=== PATIENT | female | born 1940 | race Caucasian/White ===

== ENCOUNTER 2017-09-06 14:12 | Inpatient (IN) | payer OTHER ==
[~2017-09-06] VITALS: Ht 157.5 cm; Wt 45.6 kg
[~2017-09-06 14:12] MED LIST: ALPRAZOLAM0.25 M2 PO; CARDIZEM CD120 MG PO; CARTIA XT120 MG PO; CARTIA XT240 MG PO; CELEBREX200 MG PO; CLOPIDOGREL75 MG PO; CYMBALTA30 MG PO; CYMBALTA60 MG PO; DAILY VALUE1 EACH PO; DIGOXIN125 MCG PO; DIGOXIN250 MCG PO; LEVAQUIN750 MG PO; LISINOPRIL10 MG PO; LISINOPRIL5 MG PO; LO-DOSE ASPIRIN81 M1 PO; METOPROLOL SUCC25 MG PO; METOPROLOL SUCC50 MG PO; NEXIUM40 MG PO; OXYCONTIN40 MG PO; OXYCONTIN80 MG PO; PANTOPRAZOLE SO40 MG PO; PAXIL20 MG PO; PLAVIX75 MG PO; PROTONIX40 MG PO; REMERON15 M2 PO; SPIRIVA1 INHALATI IH; ST. JOSEPH ASPI81 MG PO; TUDORZA PRESS400 MCG IH; VYTORIN 10/21 TABLET PO; XANAX0.5 MG PO; XARELTO15 MG PO; ZESTRIL20 MG PO; ZIAC 2.5/6.251 TAB PO
[2017-09-06 15:09] LABS: HEMOGLOBIN 12.8 G/DL (11.9-15.5); MCH 23.4 PG (29.0-34.0); PLATELET COUNT 414 K/uL (156-360); RBC DIS.WIDTH-SD 50.9 % (39-53); RED BLOOD COUNT 5.48 M/uL (3.80-5.20)
[2017-09-06 15:47] LABS: ALBUMIN 3.9 G/DL (3.2-4.8); CHLORIDE 97 MEQ/L (99-109); POTASSIUM 3.4 MEQ/L (3.7-5.4); SODIUM 132 MEQ/L (136-147); TOTAL BILIRUBIN 0.6 MG/DL (0.0-1.0)
[2017-09-06 15:53] LABS: ALKALINE PHOSPHATASE 108 IU/L (3-129); ALT (GPT) 13 IU/L (3-49); AST (GOT) 19 IU/L (2-34); CREATININE 1.1 MG/DL (0.6-1.3); GFR ESTIMATE (CALCULATED) 51 mL/min/; GLUCOSE 179 mg/dL (70-99); TOTAL PROTEIN 7.1 G/DL (6.4-8.3); UREA NITROGEN (BUN) 22 mg/dL (9-23)
[2017-09-06 17:38] LABS: LIPASE 63 U/L (1.0-51.0)
[2017-09-06 18:25] LABS: APPEARANCE CLEAR ((CLEAR)); BILIRUBIN NEGATIVE; BLOOD NEGATIVE; COLOR YELLOW ((YELLOW)); GLUCOSE (STRIP) NEGATIVE; KETONES NEGATIVE; LEUKOCYTES NEGATIVE; NITRITE NEGATIVE; PROTEIN (STRIP) 100; SPECIFIC GRAVITY 1.024 (1.000-1.030); UROBILINOGEN 0.2 MG/DL (0.2-1.0)
[2017-09-06 18:29] LABS: BACTERIA NONE SEEN /HPF; EPITHELIAL CELLS RARE /HPF; MUCUS TRACE /LPF; RED BLOOD CELLS 0-5 /HPF (0-5); UCUL ADDED? NO; WHITE BLOOD CELLS 0-5 /HPF (0-5)
[2017-09-06] MEDS ORDERED: ZOCOR20 MG PO (21:44)
[2017-09-06] MEDS ORDERED: ZETIA10 MG PO (21:44)
[2017-09-06] MEDS ORDERED: ZESTRIL10 MG PO (21:45)
[2017-09-06] MEDS ORDERED: OXYCONTIN80 MG PO (21:46)
[2017-09-06] MEDS ORDERED: PROZAC20 MG PO (21:46)
[2017-09-06] MEDS ORDERED: XANAX0.25 MG PO (21:46)
[2017-09-06] MEDS ORDERED: PROTONIX40 MG PO (21:47)
[2017-09-06] MEDS ORDERED: MOVANTIK25 MG PO (21:47)
[2017-09-06] MEDS ORDERED: WELLBUTRIN75 MG PO (21:47)
[2017-09-06 22:45] VITALS: BP 153/70
[2017-09-07 05:30] VITALS: BP 101/52
[2017-09-07 05:44] LABS: HEMATOCRIT 31.4 % (36.0-46.0); HEMOGLOBIN 9.7 G/DL (11.9-15.5); MCH 22.9 PG (29.0-34.0); MCHC 30.9 G/DL (30.0-36.0); MCV 74.1 FL (83-99); PLATELET COUNT 301 K/uL (156-360); RBC DIS.WIDTH-SD 53.1 % (39-53); RED BLOOD COUNT 4.24 M/uL (3.80-5.20); WHITE BLOOD COUNT 8.6 K/uL (4.1-10.2)
[2017-09-07 06:04] LABS: ALBUMIN 3.2 G/DL (3.2-4.8); ALKALINE PHOSPHATASE 78 IU/L (3-129); ALT (GPT) 12 IU/L (3-49); AST (GOT) 23 IU/L (2-34); CHLORIDE 105 MEQ/L (99-109); CREATININE 0.9 MG/DL (0.6-1.3); GFR ESTIMATE (CALCULATED) > 59 mL/min/; GLUCOSE 85 mg/dL (70-99); SODIUM 137 MEQ/L (136-147); TOTAL BILIRUBIN 0.5 MG/DL (0.0-1.0); TOTAL PROTEIN 5.6 G/DL (6.4-8.3); UREA NITROGEN (BUN) 16 mg/dL (9-23)
[2017-09-07 08:32] VITALS: BP 94/52
[2017-09-07 11:46] VITALS: BP 115/63
[2017-09-07 13:52] VITALS: BP 125/63
[2017-09-07 14:31] LABS: BASOPHIL (%) 0.5 % (0-1); EOSINOPHIL (%) 0.4 % (0-5); HEMATOCRIT 31.2 % (36.0-46.0); HEMOGLOBIN 9.6 G/DL (11.9-15.5); IMMATURE GRANULOCYTE (%) 0.4 % (0.0-0.7); LYMPHOCYTE (%) 19.1 % (15-42); LYMPHOCYTE COUNT 1.4 K/uL (1.0-2.8); MCH 23.4 PG (29.0-34.0); MCHC 30.8 G/DL (30.0-36.0); MCV 75.9 FL (83-99); MONOCYTE (%) 13.8 % (3-12); NEUTROPHIL (%) 65.8 % (45-76); PLATELET COUNT 250 K/uL (156-360); RBC DIS.WIDTH-SD 54.8 % (39-53); RED BLOOD COUNT 4.11 M/uL (3.80-5.20); WHITE BLOOD COUNT 7.6 K/uL (4.1-10.2)
[2017-09-07 19:28] VITALS: BP 122/70
[2017-09-07 23:29] VITALS: BP 131/63
[2017-09-08] VITALS (7 sets, daily range): BP systolic 125–165; BP diastolic 60–85
[2017-09-08 06:01] LABS: BASOPHIL (%) 0.9 % (0-1); BASOPHIL COUNT 0.1 K/uL (0-0.1); EOSINOPHIL COUNT 0.1 K/uL (0-0.3); HEMATOCRIT 31.4 % (36.0-46.0); HEMOGLOBIN 9.3 G/DL (11.9-15.5); IMMATURE GRANULOCYTE (%) 0.5 % (0.0-0.7); LYMPHOCYTE (%) 24.9 % (15-42); MCH 22.7 PG (29.0-34.0); MCHC 29.6 G/DL (30.0-36.0); MCV 76.6 FL (83-99); MONOCYTE (%) 10.3 % (3-12); MONOCYTE COUNT 0.8 K/uL (0-0.8); NEUTROPHIL (%) 62.4 % (45-76); PLATELET COUNT 249 K/uL (156-360); RBC DIS.WIDTH-CV 19.9 % (11.8-14.6); RBC DIS.WIDTH-SD 55.6 % (39-53); WHITE BLOOD COUNT 8.1 K/uL (4.1-10.2)
[2017-09-08 06:20] LABS: TROP-I INTERPRETATION NEGATIVE; TROPONIN-I 0.09 ng/mL (0.0-0.30)
[2017-09-08 06:25] LABS: CHLORIDE 110 MEQ/L (99-109); GFR ESTIMATE (CALCULATED) 57 mL/min/; GLUCOSE 58 mg/dL (70-99); POTASSIUM 4.7 MEQ/L (3.7-5.4); SODIUM 139 MEQ/L (136-147); UREA NITROGEN (BUN) 16 mg/dL (9-23)
[2017-09-09 04:28] VITALS: BP 142/68
[2017-09-09 07:03] LABS: BASOPHIL (%) 0.6 % (0-1); EOSINOPHIL (%) 1.7 % (0-5); EOSINOPHIL COUNT 0.1 K/uL (0-0.3); HEMATOCRIT 34.2 % (36.0-46.0); HEMOGLOBIN 10.4 G/DL (11.9-15.5); IMMATURE GRANULOCYTE (%) 0.4 % (0.0-0.7); LYMPHOCYTE (%) 24.7 % (15-42); LYMPHOCYTE COUNT 1.7 K/uL (1.0-2.8); MCH 23.2 PG (29.0-34.0); MCHC 30.4 G/DL (30.0-36.0); MCV 76.3 FL (83-99); MONOCYTE (%) 8.9 % (3-12); MONOCYTE COUNT 0.6 K/uL (0-0.8); NEUTROPHIL (%) 63.7 % (45-76); NEUTROPHIL COUNT 4.4 K/uL (1.8-6.4); PLATELET COUNT 247 K/uL (156-360); RBC DIS.WIDTH-CV 19.8 % (11.8-14.6); RBC DIS.WIDTH-SD 53.6 % (39-53); RED BLOOD COUNT 4.48 M/uL (3.80-5.20)
[2017-09-09 07:38] LABS: CHLORIDE 105 MEQ/L (99-109); GFR ESTIMATE (CALCULATED) 57 mL/min/; POTASSIUM 3.8 MEQ/L (3.7-5.4); SODIUM 137 MEQ/L (136-147); UREA NITROGEN (BUN) 11 mg/dL (9-23)
[2017-09-09 07:39] LABS: GLUCOSE 112 mg/dL (70-99)
[2017-09-09 08:00] VITALS: BP 132/67
[2017-09-09 12:00] VITALS: BP 139/72
[2017-09-09 16:00] VITALS: BP 139/84
[2017-09-09 19:37] VITALS: BP 120/65
[2017-09-10 00:04] VITALS: BP 134/59
[2017-09-10 04:14] VITALS: BP 132/55
[2017-09-10 07:08] LABS: BASOPHIL (%) 0.6 % (0-1); EOSINOPHIL (%) 1.6 % (0-5); EOSINOPHIL COUNT 0.1 K/uL (0-0.3); HEMATOCRIT 30.1 % (36.0-46.0); HEMOGLOBIN 9.2 G/DL (11.9-15.5); IMMATURE GRANULOCYTE (%) 0.3 % (0.0-0.7); LYMPHOCYTE (%) 27.4 % (15-42); LYMPHOCYTE COUNT 1.9 K/uL (1.0-2.8); MCH 23.1 PG (29.0-34.0); MCHC 30.6 G/DL (30.0-36.0); MCV 75.4 FL (83-99); MONOCYTE (%) 8.9 % (3-12); MONOCYTE COUNT 0.6 K/uL (0-0.8); NEUTROPHIL (%) 61.2 % (45-76); NEUTROPHIL COUNT 4.2 K/uL (1.8-6.4); PLATELET COUNT 231 K/uL (156-360); RBC DIS.WIDTH-CV 19.3 % (11.8-14.6); RBC DIS.WIDTH-SD 52.9 % (39-53); RED BLOOD COUNT 3.99 M/uL (3.80-5.20); WHITE BLOOD COUNT 6.9 K/uL (4.1-10.2)
[2017-09-10 07:25] VITALS: BP 144/83
[2017-09-10 07:32] LABS: CHLORIDE 109 MEQ/L (99-109); CREATININE 0.9 MG/DL (0.6-1.3); GFR ESTIMATE (CALCULATED) > 59 mL/min/; GLUCOSE 109 mg/dL (70-99); POTASSIUM 3.5 MEQ/L (3.7-5.4); SODIUM 137 MEQ/L (136-147); UREA NITROGEN (BUN) 9 mg/dL (9-23)
[2017-09-10] MEDS ORDERED: CARDIZEM CD,CA180 MG PO (08:16)
[2017-09-10] MEDS ORDERED: CIPROFLOXACIN500 M1 PO (08:18)
[2017-09-10] MEDS ORDERED: FLAGYL500 MG PO (08:19)
== END 2017-09-10 11:20 | disposition home or self-care (01) | DRG 392 ==
LOC: EME 14:12 → EDOF 20:33 → 4EAST 20:33 → ENRESERV 20:34 → 4EAST 22:41 → ENRESERV 09-07 11:50 → 2EAST 09-07 14:09
PROVIDERS: Family Medicine; Internal Medicine Cardiovascular Disease
DX: K52.9 Noninfective gastroenteritis and colitis, unspecified (principal); R64 Cachexia; I48.2 Chronic atrial fibrillation; G14 Postpolio syndrome; F11.20 Opioid dependence, uncomplicated; K21.9 Gastro-esophageal reflux disease without esophagitis; J44.9 Chronic obstructive pulmonary disease, unspecified; F32.9 Major depressive disorder, single episode, unspecified; M81.0 Age-related osteoporosis without current pathological fracture; F17.210 Nicotine dependence, cigarettes, uncomplicated; R73.03 Prediabetes; I25.10 Atherosclerotic heart disease of native coronary artery without angina pectoris; I25.2 Old myocardial infarction; E86.0 Dehydration; E78.5 Hyperlipidemia, unspecified; I11.0 Hypertensive heart disease with heart failure; I50.9 Heart failure, unspecified; I34.0 Nonrheumatic mitral (valve) insufficiency; Z95.5 Presence of coronary angioplasty implant and graft; D50.9 Iron deficiency anemia, unspecified; R91.1 Solitary pulmonary nodule; K59.03 Drug induced constipation; Z79.01 Long term (current) use of anticoagulants; Z79.82 Long term (current) use of aspirin; T40.2X5A Adverse effect of other opioids, initial encounter; F41.0 Panic disorder [episodic paroxysmal anxiety]
CPT/HCPCS: 71275; 74177; 80048; 80053; 81003; 82948; 83036; 83690; 84484; 85025; 85027; 87040; 93005; 99202; 99281; 99285; C9113; J0744; J2270; J2405; J3480; J7030; J7050; S0030